=== PATIENT | female | born 1995 | race American Indian/Alaskan Native ===

== ENCOUNTER 2017-12-14 00:38 | Emergency (ER) | payer SELFPAY ==
[2017-12-14 00:58] VITALS: BP 139/89
[2017-12-14] MEDS ORDERED: ASPIRIN PO ONE (01:18)
[2017-12-14 01:37] LABS: Basophils % (Auto) 0.8 % (0.0-1.8); Eosinophils # (Auto) 0.1 K/mm3 (0.0-0.4); Eosinophils % (Auto) 1.7 % (0.0-4.3); Hematocrit 33.9 % (30.3-42.9); Hemoglobin 11.1 gm/dl (10.1-14.3); Lymphocytes # (Auto) 2.5 K/mm3 (1.2-5.4); Lymphocytes % (Auto) 47.3 % (13.4-35.0); Mean Corpuscular HGB Conc 33 % (30-34); Mean Corpuscular Hemoglobin 27 pg (28-32); Mean Corpuscular Volume 83 fl (79-97); Monocytes # (Auto) 0.3 K/mm3 (0.0-0.8); Monocytes % (Auto) 5.3 % (0.0-7.3); Platelet Count 240 K/mm3 (140-440); Red Cell Distribution Width 17.1 % (13.2-15.2)
[2017-12-14 01:59] LABS: BUN/Creatinine Ratio 16; Blood Urea Nitrogen 11 mg/dL (7-17); Calcium 9.5 mg/dL (8.4-10.2); Hemolysis Index 5
--- NOTE | 2017-12-14 03:47 | XRay Report ---
FINAL REPORT PROCEDURE: XR CHEST 1V AP TECHNIQUE: Chest radiograph anteroposterior view. CPT 69745 HISTORY: chest pain COMPARISON: No prior studies are available for comparison. FINDINGS: Heart: Normal. Mediastinum/Vessels: Normal. Lungs/Pleural space: Normal. Bony thorax: No acute osseous abnormality. Life support devices: None. IMPRESSION: No acute cardiopulmonary abnormality.
--- NOTE | 2017-12-14 04:10 | Emergency Department Report ---
HPI - General Chief Complaint: Chest Pain Time Seen by Provider: 12/14/17 03:14 - HPI HPI: The patient is 22-year-old female who presents for evaluation of chest pain. The patient reports midsternal chest pain and dyspnea since awakening at 8:30 AM this morning, about 24 hours ago. She states that her chest pain has been sharp in quality, currently moderate in severity, constant since onset. Her dyspnea has been mild, waxing waning, currently resolved. The patient denies fever, trauma to the chest, neck pain, parasthesias, dyspnea, cough, hemoptysis , palpitations, dizziness, syncope, unilateral leg swelling, calf muscle pain. Patient also denies cocaine or other stimulant use, history of DVT or PE, recent immobilization, or history of cancer. ED Past Medical Hx - Past Medical History Hx Hypertension: Yes - Surgical History Past Surgical History?: No - Social History Smoking Status: Never Smoker Substance Use Type: None - Medications Home Medications: Home Medications Medication Instructions Recorded Confirmed Last Taken Type Cyclobenzaprine HCl [Flexeril 5 MG 5 mg PO Q8HR PRN #15 tab 12/14/17 Unknown Rx TAB] Propranolol 60 mg PO DAILY 12/14/17 12/14/17 Unknown History ED Review of Systems ROS: Stated complaint: CHEST PAIN Other details as noted in HPI Constitutional: denies: fever ENT: denies: throat or neck pain Respiratory: denies: cough reports shortness of breath Cardiovascular: reports: chest pain Endocrine: denies unexplained weight loss or gain Gastrointestinal: denies: abdominal pain, nausea Genitourinary: denies: dysuria Musculoskeletal: denies: leg swelling Skin: denies: rash Neurological: denies: headache Hematological/Lymphatic: denies: easy bleeding or easy bruising Psych: denies sadness or hopelessness Physical Exam - Physical Exam Vital Signs: Vital Signs 12/14/17 12/14/17 00:37 01:06 Temperature 97.9 F 97.9 F Pulse Rate 101 H 101 H Respiratory 22 18 Rate Blood Pressure 139/89 139/89 O2 Sat by Pulse 100 100 Oximetry Physical Exam: General: well-nourished, well-developed, no acute distress Head: Normocephalic, atraumatic Eyes: normal sclera ENT: Mucous membranes are pale and dry Neck: trachea midline, neck supple, No neck stiffness, no cervical adenopathy Respiratory: Breath sounds equal bilaterally, no wheezing, rales, or rhonchi Cardio: S1 and S2 present, no murmurs, rubs, gallops, capillary refill is delayed Abdomen: Normoactive bowel sounds, soft abdomen, no rigidity, no guarding or rebound tenderness Musc: No pitting edema Skin: No rash Neuro: no facial drooping, normal speech Psych: Normal affect ED Course Vital Signs 12/14/17 12/14/17 00:37 01:06 Temperature 97.9 F 97.9 F Pulse Rate 101 H 101 H Respiratory 22 18 Rate Blood Pressure 139/89 139/89 O2 Sat by Pulse 100 100 Oximetry ED Medical Decision Making - Lab Data Result diagrams: 12/14/17 01:23 12/14/17 01:23 - Medical Decision Making The patient was seen and examined by myself. The patient is placed on a surveillance system monitor and continuous pulse ox. On initial evaluation, the patient was found to be in no distress. EKG was negative for findings suggestive of acute cardiac infarct. Labs and imaging are obtained. The patient is given IM dose of Toradol for her pain. Chest x-ray is negative for pneumothorax, focal consolidation, pulmonary vascular congestion, pleural effusion, or other obvious acute cardiopulmonary disease process. Lab results were non-concerning including normal levels of d- dimer, troponin, WBC, hemoglobin, hematocrit, renal function, and negative test. The patient was reevaluated and reported that their symptoms were markedly improved. As the patient has a KATARINA risk score less than 2, and a well's score less than 2, the patient is at low risk of ACS or pulmonary emboli etiology of their symptoms. The patient is stable for discharge with outpatient follow-up. The patient is given follow-up and return instructions. The patient expressed understanding and agreed with the plan. The patient is discharged in stable condition. Critical care attestation.: If time is entered above; I have spent that time in minutes in the direct care of this critically ill patient, excluding procedure time. ED Disposition Clinical Impression: Acute chest pain, Dehydration Disposition: -01 TO HOME OR SELFCARE Is pt being admited?: No Does the pt Need Aspirin: No Condition: Stable Instructions: Chest Pain (ED), Costochondritis (ED), Gastroesophageal Reflux Disease (ED), Anxiety (ED) Referrals: ANGELES SMART MD [Staff Physician] - 3-5 Days [facility] [Outside] - 3-5 Days Time of Disposition: 04:09
[2017-12-14] MEDS ORDERED: TORADOL IM ONE (04:12)
== END 2017-12-14 05:18 | disposition home or self-care (01) ==
LOC: ED 00:38
DX: R07.89 Other chest pain (principal); E86.0 Dehydration; I10 Essential (primary) hypertension
CPT/HCPCS: 36415; 71045; 80048; 83880; 84484; 84703; 85025; 85379; 93005; 93010